=== PATIENT | male | born 1980 ===

== ENCOUNTER 2017-06-09 14:34 | Observation (INO) | payer SELFPAY ==
[~2017-06-09] VITALS: Ht 165.1 cm; Wt 50.3 kg
--- NOTE | ~2017-06-09 | DS ---
PATIENT'S NAME: OPHELIA [facility] AGE: 37 Y [address] ROOM: [id number] [place], [place] [address] [place] [facility] [place] DATE: 06/09/2017 Discharge Summary DISCHARGE DATE: 06/10/2017 FAMILY PHYSICIAN: Physician, Unknown ATTENDING PHYSICIAN: Viecnta Marr FAMILY PHYSICIAN: Dr. Gio Rogers through [facility] in [place], [place]. DISPOSITION: 1. Intractable abdominal pain, resolved. 2. Questionable history of acute intermittent porphyria. 3. Chronic narcotic use, dependence. 4. Chronic pain syndrome. 5. Depression. HOSPITAL COURSE: Please refer to the admitting H and P dictated by Dr. Marr for more detailed outline on the patient's presentation. The patient was ultimately admitted to the Medical/Surgical Unit and was given IV Dilaudid to help manage his discomfort along with Oark. The patient did use these medicines and by 06/10/2017 was requesting to discharge home. The patient was also seen by Dr. Welsh during his hospitalization. We did order a spot urine for rapid porphobilinogen if available versus a total porphyrinogen aureus, and creatinine. These are pending at the time of the patient's discharge. Records were obtained from his primary PCP. The patient really had an uneventful stay during this hospitalization. He is requesting to be discharged on 06/10/2017. Upon visiting with this patient, there does appear to be psychiatric component underlying and the patient does have a psychiatric history. The patient is a newly established resident of [place], [place]. We feel he needs to be established with a primary care provider. The patient concurs. Apparently, this has not been able to be accomplished in his community. We will go ahead and set him up to be seen by Dr. Shelby Antonio, Family Practice here in [place] in 3-5 days to get established for PCP. In the interim, we will await the outstanding lab values. Much counseling was given to the patient concerning the abstinence from tobacco, alcohol, marijuana, or street drugs and eating a balanced diet along with better stress management. The patient has worked with a pain specialist in the past. The patient voiced understanding of this plan. He is to continue his Abilify upon discharge. DISCHARGE MEDICATIONS: 1. Abilify 5 mg p.o. at bedtime. PATIENT'S NAME: OPHELIA [facility] AGE: 37 Y [address] ROOM: [address] [address] [place] [facility] ADMIT DATE: 06/09/2017 Discharge Summary DISCHARGE DATE: 06/10/2017 FAMILY PHYSICIAN: Physician, Unknown ATTENDING PHYSICIAN: Vicenta Marr 2. Hydrocodone/APAP 1 tab p.o. q.12 hours p.r.n. pain, #6 given with no refills. Thank you for allowing us to help care for this patient during his hospitalization. Discharge for this patient took less than 30 minute. RYAN XIE PA-C FOR MD EDDIE VOGEL/frank /[id number] CC: Shelby Antonio DO d: 06/11/17 0324 t: 06/13/17 1949, DISCHARGE SUMMARY
--- NOTE | ~2017-06-09 | HP ---
PATIENT'S NAME: [facility] AGE: 37 Y [address] ROOM: [place] [address] LOCATION: [facility] [place] ADMIT DATE: 06/09/2017 History & Physical DISCHARGE DATE: FAMILY PHYSICIAN: PHYSICIAN, UNKNOWN ATTENDING PHYSICIAN: CATHIE PIKE DATE OF SERVICE: CHIEF COMPLAINT: Intractable abdominal pain. HISTORY OF PRESENT ILLNESS: This is a 37-year-old male, who has a recent diagnosis of acute intermittent porphyria, who presents with intractable lower abdominal pain to the emergency room today. The patient reports that he woke up very early this morning with this abdominal pain, which is similar to his previous attacks, which he has had 2 to 3 episodes in the last 3 weeks, requiring an emergency room visit. At this time, the patient presented to the emergency room with same complaints and describes the pain to be generalized and mostly in the suprapubic area. Denies any radiation, but does report associated nausea and vomiting. No diarrhea. No clear exacerbating symptoms noted. The patient was diagnosed with acute intermittent porphyria about 3 months ago and had a hospitalization for workup and management of this about 3 months ago. The patient during my evaluation still continued to complain of pain, however, is overall better than when he initially presented. Denies any other associated symptoms. No cough, chest pain, shortness of breath. No dizziness or lightheadedness reported as well. Denies any recent travel, sick contacts in any family members with similar symptoms. This is overall typical presentation as he had previously presented with his acute attacks of his known intermittent porphyria. PAST MEDICAL HISTORY: 1. Acute intermittent porphyria. 2. Depression. FAMILY HISTORY: The patient has history of diabetes in the brother. SOCIAL HISTORY: The patient smokes occasionally. Denies any heavy alcohol or illicit drug use. REVIEW OF SYSTEMS: All systems have been reviewed and were all negative except as described in the HPI. [facility] 37 Y [address] ROOM: [address] [address] LOCATION: [facility] [place] ADMIT DATE: 06/09/2017 History & Physical DISCHARGE DATE: FAMILY PHYSICIAN: PHYSICIAN, UNKNOWN ATTENDING PHYSICIAN: CATHIE PIKE PHYSICAL EXAMINATION: VITAL SIGNS: Reviewed and stable. GENERAL: The patient is awake, alert, and oriented x3, in moderate distress and pain. HEENT: Moist mucous membranes. No scleral icterus, conjunctival pallor noted. HEART: S1, S2, regular rate and rhythm. CHEST: Clear to auscultation bilaterally. ABDOMEN: Soft. Mild tenderness around suprapubic area but positive bowel sounds. NEURO: Grossly nonfocal. SKIN: Without rash or lesions. ASSESSMENT AND PLAN: 1. Intractable abdominal pain. This is related to an acute attack of his known acute intermittent porphyria. We will manage with carb loading and pain management and watch for progress. The patient's pain already is better controlled. 2. Acute intermittent porphyria. Management as above. 3. Depression. Continue his home medications. MD KOURTNEY WATTS/frank /[id number] D: [id number] T: [id number] HISTORY & PHYSICAL
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
[2017-06-09] MEDS ORDERED: ARIPIPRAZOLE5 MG PO (16:02)
[2017-06-09] MEDS ORDERED: NORCO 10-325 T1 EACH PO (16:07)
[2017-06-09 17:57] LABS: ALBUMIN 4.3 gm/dL (3.5-5.0); ALK PHOS 85 IU/L (33-138); ALT 16 IU/L (12-78); ANION GAP 10.6 (10.0-19.0); AST 12 IU/L (10-40); BLOOD UREA NITROGEN 9 mg/dL (6-24); CALCIUM 9.3 mg/dL (8.5-10.5); CHLORIDE 103 mMol/L (96-110); CO2 28 mMol/L (22-32); CREATININE 0.7 mg/dL (0.6-1.3); POTASSIUM 3.6 mMol/L (3.7-5.1); SODIUM 138 mMol/L (135-145); TOTAL BILIRUBIN 0.8 mg/dL (0.0-1.5); TOTAL PROTEIN 7.7 g/dL (6.0-8.4)
--- NOTE | 2017-06-09 19:52 | NUR ---
PATIENT ALERT AND ORIENTED X3. VSS. UP AD JUDSON IN ROOM. HX OF ANXIETY. C/O ABD PAIN, DILAUDID IV GIVEN AT 1715 WITH RELIEF NOTED. PATIENT PLEASANT AND COOPERATIVE WITH CARES. DENIES NEEDS AT THIS TIME. PATIENT TO BE ON HIGH CARB DIET. DEMONSTRATES PROPER USE OF CALL LIGHT.
--- NOTE | 2017-06-09 19:54 | NUR ---
PATIENT ADMITTED FROM [facility] ER, FOR ABDOMINAL PAIN, HISTORY OF PORPHYRIA, ARNOLD SCHIARI TYPE 1, BIPOLAR, BORDER LINE PERSONALITY DISORDER. PATIENT IS ALERT AND ORIENTED X3. VSS. UP AD JUDSON IN ROOM, TO HAVE IVF. PATIENT HAS MULTIPLE ALLERGIES INCLUDING LIDOCAINE AND MORPHINE. HISTORY OF MULTIPLE BOWEL SURGERIES.
--- NOTE | 2017-06-10 02:39 | NUR ---
Significant Event: PT AO. VSS ON RA, AFEBRILE. ON HIGH CARB COUNT DIET. GLUCOSE TABS PO Q 6HR SCHEDULED. C/O PAIN TO ABDOMEN, PRN DILAUDID X2, PRN NORCO X2- ANTICIAPTE GIVING ANOTHER DOSE BEFORE END OF SHIFT. D5 @ 125ML/HR TO R AC. PT UP INDEPENDENTLY IN ROOM AND HALLS. RECORDS FROM [facility] OBTAINED AND PLACED ON FRONT OF CHART. Follow up: CONTINUE TO MONITOR
--- NOTE | 2017-06-10 14:35 | NUR ---
DISCHARGE: D: ORDERS RECEIVED FOR THE PATIENT TO BE DISCHARGED TO HOME TODAY. I: DISMISSAL INSTRUCTIONS WERE PREPARED AND REVIEWED WITH THE PATIENT AND HIS SIGNIFICANT OTHER VIRTUALLY. THE FOLLOWING INFORMATION WAS DISCUSSED INCLUDING KRAMES TEACHING SHEETS PROVIDED: NORCO AND DVT. REVIEWED SIDE EFFECTS AND HE COULD TAKE THE PRESCRIPTIONS TO HIS PHARMACY IN [place]. R: THE PATIENT AND HIS SIGNIFICANT OTHER BOTH VERBALIZED UNDERSTANDING OF THE DISMISSAL EDUCATION AT THE TIME OF TEACHING WITH NO FURTHER QUESTIONS. P: THE ABOVE INFORMATION WAS SHARED WITH THE PRIMARY NURSE AND THE CHARGE NURSE THAT THE PATIENT'S DISMISSAL EDUCATION WAS COMPLETED. THE PATIENT IS READY FOR DISCHARGE TO THE FRONT DOOR BY NURSING STAFF.
--- NOTE | 2017-06-10 14:50 | NUR ---
PT DISCHARGE INSTRUCTIONS GIVEN AND VERBALIZED UNDERSTANDING OF BY PT. IV D/C'D PER DISCHARGE. DISCHARGED PER WHEELCHAIR TO FRONT DOOR BY CHARGE NURSE PANCHITO YANG
== END 2017-06-10 14:40 | disposition disaster alternative care site (69) ==
LOC: GMSU 14:34
PROVIDERS: ADMIT Internal Medicine
DX: R10.9 Unspecified abdominal pain (principal); F11.20 Opioid dependence, uncomplicated; G89.29 Other chronic pain; F32.9 Major depressive disorder, single episode, unspecified; Z79.899 Other long term (current) drug therapy
CPT/HCPCS: G0378; J1170; J7060